=== PATIENT | female | born 1950 | race Caucasian/White ===

== ENCOUNTER 2017-03-30 08:03 | Day surgery (SDC) | payer MEDICARE, OTHER ==
[~2017-03-30] VITALS: Ht 172.7 cm; Wt 101.6 kg
[~2017-03-30 08:03] MED LIST: CALCIUM 500 +1 EAC4 PO; ECHINACEA-GOLD450 MG PO; VENTOLIN HFA18 GM INH
[2017-03-30] MEDS ORDERED: EXCEDRIN MIGRA1 EAC2 PO (08:23)
[2017-03-30] MEDS ORDERED: VITAMIN D31000 UNIT PO (08:23)
--- NOTE | 2017-03-30 10:38 | NUR ---
03/30/17 1038 Hero Mack PT SLEEPING, SAT 97%. O2 DECREASED TO 1L VIA NC.
--- NOTE | 2017-03-31 10:51 | OR ---
[facility] [address] [place], [place] [address] Signed DATE OF PROCEDURE: 03/30/17 PREOPERATIVE DIAGNOSIS: Mother with a history of colonic polyps. POSTOPERATIVE DIAGNOSES Moderate sigmoid diverticulosis. A 5 mm bilobed sessile polyp at 65 cm. PROCEDURE: Colonoscopy without biopsy. ESTIMATED BLOOD LOSS: None. INDICATIONS Regan is a 66-year-old female who was asked to see me for her initial colonoscopy. She explained that her mother developed colonic polyps. She could not remember if it was the 50s, 60s or 70s. Regan has had no lower GI complaints. I gave her a pamphlet on colonoscopy and we looked at that together. She understands the nature of the test along with the risks including, but not limited to gas bloating, crampy abdominal pain, bleeding, perforation requiring surgery, and missed diagnosis. She also understands the need for IV conscious sedation. She has expressed understanding and would like to proceed. DESCRIPTION OF PROCEDURE Regan was taken into our endoscopy suite and placed in the left lateral decubitus position. She was given divided doses of 10 mg of Versed and 200 mcg of fentanyl. A digital rectal exam was performed an d this was unremarkable. The adult colonoscope was introduced and advanced under direct visualization of camera without difficulty. She did require extra sedation, particularly through the sigmoid colon and then finally down into the cecum. Her prep was excellent. The scope was then slowly withdrawn. She did have moderate sigmoid diverticulosis. They are moderate in size, moderate in number and scattered about. At 65 cm, she has a bilobed sessile polyp, which we removed with hot biopsy forceps. The rectum itself was unremarkable. Upon retroflexion of scope, there was no additional pathology noted above the anal canal. After this, the gas was suctioned out and the colonoscope removed. Regan tolerated the procedure quite well. RECOMMENDATIONS I will see Chelsie chen back in my office in 7-14 days to review her results. At a minimum, she will need followup colonoscopy every 5 years due to her family history. Electronically Signed By: DONNY CAMPA MD 03/31/17 1051 PATIENT NAME: REGAN BLACKMAN OPERATIVE REPORT DATE OF : 50 PHYSICIAN: DONNY CAMPA MD REPORT #: [id number] REPORT IS CONFIDENTIAL AND NOT TO BE RELEASED WITHOUT AUTHORIZATION [address] [address] Signed oDnny Campa MD AB/Modl /[id number] cc: Dr. Geoffrey Luque Electronically Signed By: DONNY CAMPA MD 03/31/17 1051 PATIENT NAME: REGAN BLACKMAN OPERATIVE REPORT DATE OF : 50 PHYSICIAN: DONNY CAMPA MD REPORT #: [id number] REPORT IS CONFIDENTIAL AND NOT TO BE RELEASED WITHOUT AUTHORIZATION
== END 2017-03-30 11:21 | disposition home or self-care (01) ==
LOC: OPS 08:03 → DS 08:03 → OPS 09:00
PROVIDERS: Colon & Rectal Surgery
PROC: 0DBE8ZX Excision of Large Intestine, Via Natural or Artificial Opening Endoscopic, Diagnostic (ICD-10-PCS; principal; 2017-03-30 09:45)
DX: Z12.11 Encounter for screening for malignant neoplasm of colon (principal); K57.30 Diverticulosis of large intestine without perforation or abscess without bleeding; K21.9 Gastro-esophageal reflux disease without esophagitis; E78.5 Hyperlipidemia, unspecified; G62.9 Polyneuropathy, unspecified; J45.909 Unspecified asthma, uncomplicated; Z83.71 Family history of colonic polyps; Z90.49 Acquired absence of other specified parts of digestive tract; Z90.711 Acquired absence of uterus with remaining cervical stump; Z98.890 Other specified postprocedural states; Z88.8 Allergy status to other drugs, medicaments and biological substances; Z79.899 Other long term (current) drug therapy
CPT/HCPCS: 88305; 99152; 99153; J2250; J3010; J7120

== ENCOUNTER 2018-04-22 08:20 | Emergency (ER) | payer MEDICARE, OTHER ==
[~2018-04-22] VITALS: Ht 172.7 cm; Wt 101.6 kg
--- OUTSIDE RECORDS SUMMARY | ~2018-04-22 | XMS | Encounter Summary ---
Demographics + + + | Address | [address] | | | [place] [facility] [place] [address] | + + + | Home Phone | | + + + | Preferred Language | Unknown | + + + | Marital Status | | + + + | Church Affiliation | Unknown | + + + | Race | Unknown | + + + | Ethnic Group | Unknown | + + + Author + + + | Author | [facility] | | | and [place] | + + + | Organization | [facility] | | | and [place] | + + + | Address | Unknown | + + + | Phone | Unavailable | + + + Support + + +---------+ + | Name | Relationship | Address | Phone | + + +---------+ + | Dana Lay | ECON | Unknown | | + + +---------+ + Care Team Providers + +------+ + | Care Diver Tender Name | Role | Phone | + +------+ + | Ajay Luque DO | PCP | Unavailable | + +------+ + Encounter Details +--------+ + + + + | Date | Type | Department | Care Team | Description | +--------+ + + + + | 03/16/ | Abstract | [facility] | Lesley Rebolledo | | | 2018 | | [facility] | L, CATTLE ALLEY WORKER | | | | | [facility] CLIN[facility] [address] | | | | | | [address] [place], | | | | | | [place] [address] | | | | | | [phone] | | | +--------+ + + + + Social History + +-------+ +--------+------+ | Tobacco Use | Types | Packs/Day | Years | Date | | | | | Used | | + +-------+ +--------+------+ | Former Smoker | | | | | + +-------+ +--------+------+ + +---+---+---+ | Smokeless Tobacco: | | | | | Never Used | | | | + +---+---+---+ + + | Comments: Only smoked one summer as a teenager. | + + + + +---------+ + | Alcohol Use | Drinks/We | oz/Week | Comments | | | ek | | | + + +---------+ + | Yes | | | Drinks alcohol about 3 times a year. | + + +---------+ + + + + | Sex Assigned at | Date Recorded | | | | + + + | Not on file | | + + + as of this encounter Plan of Treatment Not on fileas of this encounter Visit Diagnoses Not on filein this encounter"
--- OUTSIDE RECORDS SUMMARY | ~2018-04-22 | XMS | Encounter Summary ---
Demographics + + + | Address | [address] | | | [place] [address] | + + + | Home Phone | | + + + | Preferred Language | Unknown | + + + | Marital Status | | + + + | Congregation Affiliation | Unknown | + + + | Race | Unknown | + + + | Ethnic Group | Unknown | + + + Author + + + | Author | [facility] | | | and [place] | + + + | Organization | [facility] | | | and [place] | [...] Team Providers + +------+ + | Care Superior Court Justice Name | Role | Phone | + +------+ + | Ajay Luque DO | PCP | Unavailable | + +------+ + Encounter Details +--------+ + + + + | Date | Type | Department | Care Team | Description | +--------+ + + + + | 03/13/ | Abstract | [facility] | Unknown, Doctor | | | 2018 | | [facility] | [phone] | | | | | MEDICAL CLINIC [address] | | | | | | [address] [place], | | | | | | [place] [address] | | | | | | [phone] | | | +--------+ + + + [...]
--- OUTSIDE RECORDS SUMMARY | ~2018-04-22 | XMS | Clinical Summary ---
Demographics + + + | Address | [address] | | | [place] [facility] [address] | + + + | Home Phone | | + + + | Preferred Language | Unknown | + + + | Marital Status | | + + + | Voodoo Affiliation | Unknown | + + + | Race | Unknown | + + + | Ethnic Group | Unknown | + + + Author + + + | Author | [facility] | | | and [place] | + + + | Organization | [facility] | | | and [place] [...] Team Providers + +------+ + | Care Foreign Languages Professor Name | Role | Phone | + +------+ + | Ajay Luque DO | PP | Unavailable | + +------+ + Allergies No Known Allergies Current Medications + + +---------+---------+------+------+-------+ | Prescription | Sig. | Disp. | Refills | Star | End | Statu | | | | | | t | Date | s | | | | | | Date | | | + + +---------+---------+------+------+-------+ | Misc Natural | Take 3 tablets by | | | | | Activ | | Products (CALMME PO) | mouth Daily. Natural | | | | | e | | | medication | | | | | | | | purchased at [employer] | | | | | | | | Market. | | | | | | + + +---------+---------+------+------+-------+ | | Take 2 tablets by | | | | | Activ | | Aspirin-Acetaminophe | mouth as needed. | | | | | e | | n-Caffeine (EXCEDRIN | | | | | | | | MIGRAINE PO) | | | | | | | + + +---------+---------+------+------+-------+ | albuterol 90 | Inhale 2 puffs into | 1 | 2 | 01/2 | | Activ | | mcg/puff inhaler | the lungs every 6 | Inhaler | | 9/20 | | e | | | hours as needed. | | | 15 | | | + + +---------+---------+------+------+-------+ | omeprazole | Take 1 capsule by | 30 | 5 | 01/2 | | Activ | | (PRILOSEC) 20 mg | mouth Daily. | capsule | | 9/20 | | e | | capsuleIndications: | | | | 15 | | | | GERD | | | | | | | | (gastroesophageal | | | | | | | | reflux disease) | | | | | | | + + +---------+---------+------+------+-------+ | pravastatin | Take 1 tablet by | 30 | 5 | 01/3 | | Activ | | (PRAVACHOL) 40 MG | mouth nightly. | tablet | | 0/20 | | e | | tablet | | | | 15 | | | + + +---------+---------+------+------+-------+ | gabapentin | Take one tablet at | 90 | 2 | 03/2 | | Activ | | (NEURONTIN) 300 mg | night only for the | capsule | | 01/24 | | e | | capsuleIndications: | first 5 days then | | | 15 | | | | Chronic low back | gradually increase | | | | | | | pain, DDD | up to 3 times daily | | | | | | | (degenerative disc | as tolerated | | | | | | | disease), lumbar, | | | | | | | | Paresthesias | | | | | | | + + +---------+---------+------+------+-------+ | sodium | Take 177 mLs by | 2 | 0 | 03/2 | | Activ | | sulfate-potassium | mouth See Admin | Bottle | | 6/20 | | e | | sulfate-magnesium | Instructions. | | | 15 | | | | sulfate (SUPREP) | | | | | | | | oral | | | | | | | | solutionIndications: | | | | | | | | Special screening | | | | | | | | for malignant | | | | | | | | neoplasms, colon | | | | | | | + + +---------+---------+------+------+-------+ | cyclobenzaprine | Take 10 mg by mouth. | | | 10/ | | Activ | | (FLEXERIL) 10 mg | | | | 02/23 | | e | | tablet | | | | 16 | | | + + +---------+---------+------+------+-------+ | pregabalin | Take 50 mg by mouth. | | | 02/0 | | Activ | | (LYRICA) 50 MG | | | | 03/26 | | e | | capsule | | | | 18 | | | + + +---------+---------+------+------+-------+ | TURMERIC PO | by Misc.(Non-Drug; | | | | | Activ | | | Combo Route) route. | | | | | e | + + +---------+---------+------+------+-------+ | VOLTAREN 1 % GEL | | | 0 | 05/2 | | Activ | | | | | | 4/20 | | e | | | | | | 18 | | | + + +---------+---------+------+------+-------+ Active Problems + + + | Problem | Noted Date | + + + | DDD (degenerative disc disease), cervical | 02/25/2015 | + + + | Sacroiliitis, not elsewhere classified (HCC) | 12/04/2014 | + + + | Chronic low back pain | 10/30/2014 | + + + | DDD (degenerative disc disease), lumbar | 10/30/2014 | + + + | Paresthesias in Bilateral legs - NCS no central radiculopathy or | 10/30/2014 | | peripheral neuropathy, possible small fiber neuropathy | | + + + | Hyperlipidemia | 10/05/2014 | + + + | Chronic neck and back pain | 09/06/2014 | + + + | Obesity, Class II, BMI 35-39.9 | 09/06/2014 | + + + | History of shingles | 09/06/2014 | + + + | Chronic radicular low back pain | 09/04/2014 | + + + | GERD (gastroesophageal reflux disease) | 09/04/2014 | + + + | Asthma in adult | 09/04/2014 | + + + Encounters +--------+ + + + + | Date | Type | Specialty | Care Team | Description | +--------+ + + + + | 04/02/ | Abstract | | Ajay Luque | | | 2017 | | | DO Mary | | +--------+ + + + + | 03/16/ | Abstract | | Lesley Rebolledo | | | 2017 | | | YESIKA Vann | | +--------+ + + + + | 03/13/ | Abstract | | Doctor Ashley | | | 2017 | | | | | +--------+ + + + + | 08/07/ | Telephone | | Lety Metz, CC | Lipoma | | 2017 | | | CLIP LOADING MACHINE FEEDER | | +--------+ + + + + from Last 3 Months Immunizations + + + + | Name | Dates Previously Given | Next Due | + + + + | PNEUMOCOCCAL | 03/11/2015 | | | CONJUGATE 13-VALENT | | | | (PCV13) | | | + + + + | PNEUMOCOCCAL | 01/05/2017 | | | POLYSACCHARIDE | | | | 23-VALENT (PPSV23) | | | + + + + | TDAP, (ADOL/ADULT) | 01/05/2017 | | + + + + Family History + + +------+ + | Medical History | Relation | Name | Comments | + + +------+ + | Emphysema | Father | | | + + +------+ + | Lung cancer | Father | | | + + +------+ + | Ulcer Disease | Father | | | + + +------+ + | Breast cancer | Maternal | | | | | Grandmoth | | | | | er | | | + + +------+ + | Cancer | Maternal | | Breast cancer | | | Grandmoth | | | | | er | | | + + +------+ + | Alzheimer's disease | Mother | | | + + +------+ + | Breast cancer | Mother | | | + + +------+ + | Cancer | Mother | | Breast cancer | + + +------+ + | Dementia | Mother | | | + + +------+ + | Heart disease | Mother | | | + + +------+ + | High blood pressure | Mother | | | + + +------+ + | Hypertension | Mother | | | + + +------+ + | Mental illness | Mother | | Bipolar | + + +------+ + | Breast cancer | Sister | | | + + +------+ + | Cancer | Sister | | Breast cancer | + + +------+ + + +------+--------+ + | Relation | Name | Status | Comments | + +------+--------+ + | Father | | | | + +------+--------+ + | Maternal Grandmother | | | | + +------+--------+ + | Mother | | | | + +------+--------+ + | Sister | | | | + +------+--------+ + Social History + +-------+ +--------+------+ | [...] on file | | + + + Last Filed Vital Signs + + + + | Vital Sign | Reading | Time Taken | + + + + | Blood Pressure | 136/71 | 02/25/2015 1135 PDT | + + + + | Pulse | 67 | 02/25/20151134 PDT | + + + + | Temperature | 36.2 C (97.2 F) | 10/02/2014943 PST | + + + + | Respiratory Rate | 18 | 10/02/2014943 PST | + + + + | Oxygen Saturation | 95% | 10/02/2014943 PST | + + + + | Inhaled Oxygen | - | - | | Concentration | | | + + + + | Weight | 102.1 kg (225 lb) | 02/25/20151134 PDT | + + + + | Height | 175.3 cm (5' 9") | 02/25/20151134 PDT | + + + + | Body Mass Index | 33.23 | 02/25/20151134 PDT | + + + + Plan of Treatment + + + + + | Health Maintenance | Due Date | Last Done | Comments | + + + + + | Hepatitis C | | | | | Screening | 1 | | | + + + + + | Vaccine: Zoster (1 | | | | | of 2) | 1 | | | + + + + + | Statin Therapy | | | | | (optimal intensity) | 5 | | | + + + + + | PRIMARY CARE | | 02/25/2015, 10/30/2014, | | | OUTREACH-INTENSE | 5 | 10/02/2014, Additional history | | | RISK EVERY 3 MONTHS | | exists | | + + + + + | Vaccine: Influenza | | | | | (#1) | 8 | | | + + + + + | BREAST CANCER | | 11/29/2017, 09/18/2014 | | | SCREENING (MAMM Q2 | 0 | | | | YEARS 50-74) | | | | + + + + + | Vaccine: | | 01/05/2017 | | | Dtap/Tdap/Td (2 - | 7 | | | | Td) | | | | + + + + + | Colorectal Cancer | | 03/30/2017 | | | Screening | 7 | | | | (Colonoscopy) | | | | + + + + + | Vaccine: | Completed | 01/05/2017, 03/11/2015 | | | Pneumococcal 65+ | | | | | Low/Medium Risk | | | | + + + + + Results Not on filefrom Last 3 Months Insurance + +--------+ +--------+ +---------+ | Payer | Benefi | Subscriber | Type | Phone | Address | | | t Plan | ID | | | | | | / | | | | | | | Group | | | | | + +--------+ +--------+ +---------+ | MEDICARE | MEDICA | [id number] | Medica | [phone] | | | | RE | | re | [phone] | | | | PART A | | | | | | | AND B | | | | | + +--------+ +--------+ +---------+ | [employer] [place] | UNITED | [id number] | Indemn | [id number] | | | | OF | | ity | 1000 | | | | [place] | | | | | | | MDCR | | | | | | | SUPPL | | | | | + +--------+ +--------+ +---------+ + +--------+ +--------+ + + | Guarantor Name | Accoun | Relation to | Date | Phone | Billing Address | | | t Type | Patient | of | | | | | | | | | | + +--------+ +--------+ + + | REGAN BLACKMAN | Person | Self [birth year] | Home: | [address] | | [place] | al/Fam | | 1950 | [address]- | [place] | | | abe | | | [phone] | [phone] | + +--------+ +--------+ + + | REGAN BLACKMAN | Person | Self | [birth year] | Home: | [address] | | [place] | al/Fam | | 1950 | [address]- | [place] | | | abe | | | [phone] | [phone] | + +--------+ +--------+ + +
--- OUTSIDE RECORDS SUMMARY | ~2018-04-22 | XMS | Clinical Summary ---
Demographics + + + | Address | [address] | | | [place] [facility] [place] [place] [address] | + + + | Home Phone | | + + + | Preferred Language | Unknown | + + + | Marital Status | | + + + | Bahai Affiliation | Unknown | + + + | Race | Unknown | + + + | Ethnic Group | Unknown | + + + Author + + + | Author | [facility] | | | and [place] | + + + | Organization | [facility] | | | and [place] [...] Team Providers + +------+ + | Care Innovation Analyst Name | Role | Phone | + [...] | | | | | purchased at [employer] | | | | | | | [...] Lipoma | | 2017 | | | WEB SUPPORT ENGINEER | | +--------+ + + + + [...] +--------+ +---------+ | MEDICARE | MEDICA | [id number] | Medica | [phone] | | | | RE | | re | [phone] | | | | PART A | | | | | | | AND B | | | | | + +--------+ +--------+ +---------+ | [employer] | UNITED | [id number] | Indemn | [id number] | | | | OF | | ity | 1000 | | | | [place] | | | | | | | [...] | Self [birth year] | Home: | [address] | | [place] | al/Fam | | 1950 | [address]- | [place] | | | abe | | | [phone] | [phone] | + +--------+ +--------+ + + | REGAN BLACKMAN | Person | Self | [birth year] | Home: | [address] | | [place] | al/Fam | | 1950 | [address]- | [place] | | | abe | | | [phone] | [phone] | + +--------+ +--------+ + +
--- OUTSIDE RECORDS SUMMARY | ~2018-04-22 | XMS | Encounter Summary ---
Demographics + + + | Address | [address] | | | [place] [facility] [place] [address] | + + + | Home Phone | | + + + | Preferred Language | Unknown | + + + | Marital Status | | + + + | Zoroastrian Affiliation | Unknown | + + + | Race | Unknown | + + + | Ethnic Group | Unknown | + + + Author + + + | Author | [facility] | | | and [place] | + + + | Organization | [facility] | | | and [place] [...] Team Providers + +------+ + | Care Silica Dry Press Helper Name | Role | Phone | + +------+ + | Ajay Luque DO | PCP | Unavailable | + +------+ + Encounter Details +--------+ + + + + | Date | Type | Department | Care Team | Description | +--------+ + + + + | 03/13/ | Abstract | [facility] | Unknown, Doctor | | | 2018 | | [facility] | [phone] | | | | | MEDICAL CLINIC [address] | | | | [address] [place], | | | | | | [place] [address] | | | | | | [phone] | | | +--------+ + + + [...]
--- OUTSIDE RECORDS SUMMARY | ~2018-04-22 | XMS | Encounter Summary ---
Demographics + + + | Address | [address] | | | [place] [place] [address] | + + + | Home Phone | | + + + | Preferred Language | Unknown | + + + | Marital Status | | + + + | Jainism Affiliation | Unknown | + + + | Race | Unknown | + + + | Ethnic Group | Unknown | + + + Author + + + | Author | [facility] | | | and [place] | + + + | Organization | [facility] | | | and [place] [...] Team Providers + +------+ + | Care Sheet Heater Helper Name | Role | Phone | + +------+ + | Ajay Luque DO | PCP | Unavailable | + +------+ + Encounter Details +--------+ + + + + | Date | Type | Department | Care Team | Description | +--------+ + + + + | 04/02/ | Abstract | [facility] | Ajay Luque | | | 2018 | | [facility] | E, DO [address] | | | | | MEDICAL CLINIC [address] | [place] | | | | | [address] [place], | [address] | | | | | [place] [address] | [phone] | | | | | [phone] | | | +--------+ + + + [...] Treatment Not on fileas of this encounter Procedures + +--------+ + + + | Procedure Name | Priori | Date/Time | Associated Diagnosis | Comments | | | ty | | | | + +--------+ + + + | DIANA EXTERNAL IMAGE | Routin | 11/29/2017 | | Results for this | | | e | 0000 PDT | | procedure are in the | | | | | | results section. | + +--------+ + + + | EXTERNAL: | Routin | 03/30/2017 | | Results for this | | COLONOSCOPY | e | 0000 PDT | | procedure are in the | | | | | | results section. | + +--------+ + + + in this encounter Results DIANA External Image (11/29/2017) + + + + + | Component | Value | Ref Range | Performed At | + + + + + | EXT MAMMOGRAPHY | 1-NegativeComment: [facility]. | | | | | [facility], | | | | | [facility] | | | + + + + + EXTERNAL: COLONOSCOPY (03/30/2017) + + + + + | Component | Value | Ref Range | Performed At | + + + + + | Colonoscopy | Report not found; Repeat | | | | Impression, External | years not | | | | | found.Comment: Per | | | | | [facility] | | | | | Medicine medical record | | | + + + + + in this encounter Visit Diagnoses Not on filein this encounter"
--- OUTSIDE RECORDS SUMMARY | ~2018-04-22 | XMS | Encounter Summary ---
Demographics + + + | Address | [address] | | | [place] [facility] [address] | + + + | Home Phone | | + + + | Preferred Language | Unknown | + + + | Marital Status | | + + + | Amish Affiliation | Unknown | + + + | Race | Unknown | + + + | Ethnic Group | Unknown | + + + Author + + + | Author | [facility] | | | and [place] | + + + | Organization | [facility] | | | and [place] | + + + | Address | Unknown | + + + | Phone | Unavailable | + + + Support + + +---------+ + | Name | Relationship | Address | Phone | + + +---------+ + | YamiletomayraDana hernandez | ECON | Unknown | | + + +---------+ + Care Team Providers + +------+ + | Care Production Cell Leader Name | Role | Phone | + +------+ + | Ajay Luque DO | PCP | Unavailable | + +------+ + Reason for Visit +--------+ + | Reason | Comments | +--------+ + | Lipoma | | +--------+ + Encounter Details +--------+ + + + + | Date | Type | Department | Care Team | Description | +--------+ + + + + | 03/13/ | Telephone | [facility] | Lety Metz, CC | Lipoma | | 2018 | | [facility] | RECREATIONAL SPORTS DIRECTOR | | | | | MEDICAL CLINIC [address] | | | | | [address] [place], | | | | | | [place] [address] | | | | | | [phone] | | | +--------+ + + + [...]
--- OUTSIDE RECORDS SUMMARY | ~2018-04-22 | XMS | Encounter Summary ---
Demographics + + + | Address | [address] | | | [place] [place] [facility] [address] | + + + | Home Phone | | + + + | Preferred Language | Unknown | + + + | Marital Status | | + + + | Buddhist Affiliation | Unknown | + + + | Race | Unknown | + + + | Ethnic Group | Unknown | + + + Author + + + | Author | [facility] | | | and [place] | + + + | Organization | [facility] | | | [...] Team Providers + +------+ + | Care Forestry Worker Name | Role | Phone | + [...] | Lipoma | | 2018 | | [facility] | [address] | | | | | MEDICAL CLINIC [address] | | | | [address] [place], | | | | | | [place] [address] | | | | | | [phone] | | | +--------+ + + + [...]
--- OUTSIDE RECORDS SUMMARY | ~2018-04-22 | XMS | Encounter Summary ---
Demographics + + + | Address | [address] | | | [place] [facility] [address] | + + + | Home Phone | | + + + | Preferred Language | Unknown | + + + | Marital Status | | + + + | Denominational Affiliation | Unknown | + + + | Race | Unknown | + + + | Ethnic Group | Unknown | + + + Author + + + | Author | [facility] | | | and [place] | + + + | Organization | [facility] | | | and [place] [...] Team Providers + +------+ + | Care Denial Resolution Specialist Name | Role | Phone | + +------+ + | Ajay Luque DO | PCP | Unavailable | + +------+ + Encounter Details +--------+ + + + + | Date | Type | Department | Care Team | Description | +--------+ + + + + | 04/02/ | Abstract | [facility] | Ajay Luque | | | 2018 | | [facility] | E, DO [address] | | | | | MEDICAL CLINIC [address] | [place] | | | | | [address] [place], | [address] | | | | | [place] [address] | [phone] | | | | | [phone] | | | +--------+ + + + [...] 1-NegativeComment: St. | | | | | [facility], | | | | | [place] | [...]
--- OUTSIDE RECORDS SUMMARY | ~2018-04-22 | XMS | Encounter Summary ---
Demographics + + + | Address | [address] [facility] [address] [address] | | | [place] [facility] [address] | + + + | Home Phone | | + + + | Preferred Language | Unknown | + + + | Marital Status | | + + + | Buddhist Affiliation | Unknown | + + + | Race | Unknown | + + + | Ethnic Group | Unknown | + + + Author + + + | Author | [facility] | | | and [place] | + + + | Organization | [facility] | | | and [place] [...] Team Providers + +------+ + | Care Green Plumber Name | Role | Phone | + +------+ + | Ajay Luque DO | PCP | Unavailable | + +------+ + Encounter Details +--------+ + + + + | Date | Type | Department | Care Team | Description | +--------+ + + + + | 03/16/ | Abstract | KAREN CARTY | Lesley Rebolledo | | | 2018 | | [facility] | L, [facility] | | | | | [facility] [address] | | | [address] [place], | | | | | | [place] [address] | | | | | | [phone] | | | +--------+ + + + [...]
[~2018-04-22 08:20] MED LIST changes: +EXCEDRIN MIGRA1 EAC2 PO; +VITAMIN D31000 UNIT PO
== END 2018-04-22 09:41 | disposition home or self-care (01) ==
LOC: ED 08:20
DX: R07.0 Pain in throat (principal); Z88.8 Allergy status to other drugs, medicaments and biological substances; Z79.82 Long term (current) use of aspirin; Z79.899 Other long term (current) drug therapy
CPT/HCPCS: 99283